=== PATIENT | male | born 1975 | race Caucasian/White ===

== ENCOUNTER 2020-10-17 04:57 | Day surgery (SDC) | payer OTHER ==
[2020-10-16 13:18] VITALS: BMI 25.7
[~2020-10-17 04:57] MED LIST: IOHEXOL 300 MG/ML INFUS..BTL IV ONE
[2020-10-17] MEDS ORDERED: SUCCINYLCHOLINE CHLORIDE 200 MG/10 ML SYRINGE ONE (10:38)
[2020-10-17] MEDS ORDERED: MIDAZOLAM HCL 2 MG/2 ML SINGLE DOSE VIAL ONE (10:38)
[2020-10-17] MEDS ORDERED: PROPOFOL 20 ML ONE ×2 (10:38)
[2020-10-17] MEDS ORDERED: LIDOCAINE HCL 2% JELLY 10 ML CARTRIDGE ONE (10:43)
[2020-10-17] MEDS ORDERED: KETOROLAC TROMETHAMINE 30 MG/1 ML VIAL ONE (10:44)
[2020-10-17] MEDS ORDERED: ceFAZolin SODIUM 1 GM VIAL ONE (10:44)
[2020-10-17] MEDS ORDERED: DEXAMETHASONE SOD PHOSPHATE 4 MG/1 ML VIAL ONE (10:44)
[2020-10-17] MEDS ORDERED: LIDOCAINE HCL/PF 2% SDV 5ML VIAL ONE (10:44)
[2020-10-17] MEDS ORDERED: ceFAZolin SODIUM 1 GM VIAL IVPB ONE (10:50)
[2020-10-17] MEDS ORDERED: ACETAMINOPHEN 325 MG TABLET (FP) PO PRN (12:08)
[2020-10-17] MEDS ORDERED: ONDANSETRON 4 MG/2 ML VIAL IVPUSH PRN (12:50)
[2020-10-17] MEDS ORDERED: oxyCODONE HCL 5 MG TABLET PO PRN ×2 (12:50)
[2020-10-17] MEDS ORDERED: LACTATED RINGERS SOLUTION 1,000 ML IV SCH (13:00)
[2020-10-17 17:12] VITALS: TEMP 97.8
[2020-10-17 17:31] VITALS: BP 106/64; PULSE 66
== END 2020-10-17 16:30 | disposition home or self-care (01) ==
LOC: JASU-SURG 04:57
PROVIDERS: ATTEND Urology
PROC: 0T578ZZ Destruction of Left Ureter, Via Natural or Artificial Opening Endoscopic (ICD-10-PCS; principal; 2020-10-17 10:00)
PROC: 0T9780Z Drainage of Left Ureter with Drainage Device, Via Natural or Artificial Opening Endoscopic (ICD-10-PCS; 2020-10-17 10:00)
PROC: 0T778DZ Dilation of Left Ureter with Intraluminal Device, Via Natural or Artificial Opening Endoscopic (ICD-10-PCS; 2020-10-17 10:00)
DX: N23 Unspecified renal colic (principal); N13.39 Other hydronephrosis; N28.89 Other specified disorders of kidney and ureter
CPT/HCPCS: 76000-TC-FY; 87070; 87075; 87086; 87205; 94760

== ENCOUNTER 2020-11-07 06:37 | Day surgery (SDC) | payer OTHER ==
[2020-11-06 15:19] VITALS: BMI 26.3
[2020-11-07] MEDS ORDERED: ceFAZolin SODIUM 1 GM VIAL ONE ×3 (15:36→18:04)
[2020-11-07] MEDS ORDERED: MIDAZOLAM HCL 2 MG/2 ML SINGLE DOSE VIAL ONE ×2 (17:40→18:07)
[2020-11-07] MEDS ORDERED: ceFAZolin SODIUM 1 GM VIAL IVPB ONE (18:02)
[2020-11-07] MEDS ORDERED: PROPOFOL 20 ML ONE (18:04)
[2020-11-07 20:07] VITALS: BP 108/70; PULSE 74; TEMP 97.8
== END 2020-11-07 19:40 | disposition home or self-care (01) ==
LOC: JASU-SURG 06:37
PROVIDERS: ATTEND Urology
PROC: 0TF4XZZ Fragmentation in Left Kidney Pelvis, External Approach (ICD-10-PCS; principal; 2020-11-07 15:30)
DX: N20.0 Calculus of kidney (principal)

== ENCOUNTER 2021-01-16 04:09 | Day surgery (SDC) | payer OTHER ==
[2021-01-12 15:14] VITALS: BMI 26.3
[2021-01-16] MEDS ORDERED: MIDAZOLAM HCL 2 MG/2 ML SINGLE DOSE VIAL ONE ×2 (09:08)
[2021-01-16] MEDS ORDERED: LIDOCAINE HCL/PF 2% SDV 5ML VIAL ONE (09:08)
[2021-01-16] MEDS ORDERED: PROPOFOL 20 ML ONE ×3 (09:08→09:11)
[2021-01-16] MEDS ORDERED: ceFAZolin SODIUM 1 GM VIAL ONE (10:33)
[2021-01-16] MEDS ORDERED: ceFAZolin SODIUM 1 GM VIAL IVPB ONE (10:34)
[2021-01-16 12:20] VITALS: BP 117/77; PULSE 75; TEMP 97.7
== END 2021-01-16 13:45 | disposition home or self-care (01) ==
LOC: JASU-SURG 04:09
PROVIDERS: ATTEND Urology
PROC: 0TF4XZZ Fragmentation in Left Kidney Pelvis, External Approach (ICD-10-PCS; principal; 2021-01-16 09:00)
DX: N20.0 Calculus of kidney (principal)